=== PATIENT | female | born 2000 | race Caucasian/White ===

== ENCOUNTER 2020-10-31 13:09 | Emergency (ER) | payer OTHER ==
[~2020-10-31] VITALS: Ht 162.6 cm; Wt 90.9 kg
[~2020-10-31 13:09] MED LIST: NOCURR
[2020-10-31] MEDS ORDERED: LIDOCAINE 1% 10 ML VIAL SQ ONE (17:15)
[2020-10-31] MEDS ORDERED: POVIDONE-IODINE 10% 15 ML SOLUTION UD TP ONE (17:15)
[2020-10-31] MEDS ORDERED: HYDROCODONE/ACETAMINOPHEN 5-325 MG TABLET PO ONE (17:15)
[2020-10-31] MEDS ORDERED: PERTUSS(ACELL),DIPH,TET VAC/PF 0.5 ML SYRINGE IM. ONE (18:00)
[2020-10-31] MEDS ORDERED: AMOX TR/POT CLAV 875 MG/125 MG TABLET PO ONE (18:00)
[2020-10-31] MEDS ORDERED: BACITRACIN 0.9 GM PACKET OINTMENT TP ONE (18:15)
[2020-10-31 18:22] VITALS: BP 142/79
== END 2020-10-31 18:44 | disposition home or self-care (01) ==
LOC: EMS 13:09
DX: S41.111A Laceration without foreign body of right upper arm, initial encounter (principal); S41.151A Open bite of right upper arm, initial encounter; W54.0XXA Bitten by dog, initial encounter; Y93.89 Activity, other specified; Y92.89 Other specified places as the place of occurrence of the external cause; Y99.8 Other external cause status
CPT/HCPCS: 12002; 90471; 90715; 99283; J3490; 12011

== ENCOUNTER 2022-12-29 04:53 | Emergency (ER) | payer OTHER ==
[~2022-12-29] VITALS: Ht 170.2 cm; Wt 95.0 kg
[2022-12-29 05:49] LABS: BASOPHILS % (AUTO) 0.5 % (0.0-2.0); EOSINOPHILS % (AUTO) 2.2 % (1.0-6.0); HEMATOCRIT 36.8 % (36-46); HEMOGLOBIN 12.3 g/dL (12.0-16.0); LYMPHOCYTES # (AUTO) 1.4 K/uL (1.0-4.8); LYMPHOCYTES % (AUTO) 13.3 % (22.0-44.0); MEAN CORPUSCULAR HEMOGLOBIN 28.5 pg (26.0-34.0); MEAN CORPUSCULAR HGB CONC 33.6 G/dL (31.0-37.0); MEAN CORPUSCULAR VOLUME 85 fL (80-100); MONOCYTES # (AUTO) 0.5 K/uL (0.1-1.0); MONOCYTES % (AUTO) 4.3 % (2.0-9.0); NEUTROPHILS # (AUTO) 8.5 K/uL (1.8-7.7); NEUTROPHILS % (AUTO) 79.7 % (40.0-70.0); PLATELET COUNT (AUTO) 277 K/uL (150-450); RED BLOOD CELL COUNT(AUTO) 4.33 MIL/uL (4.00-5.20); RED CELL DISTRIBUTION WIDTH 13.6 % (11.5-14.5); WHITE BLOOD COUNT (AUTO) 10.7 K/uL (4.5-11.0)
[2022-12-29 05:56] LABS: ANION GAP 6 mmol/L (8-16); CALCIUM, TOTAL 8.8 mg/dL (8.8-10.5); CARBON DIOXIDE 30 mmol/L (22-29); CHLORIDE 105 mmol/L (98-107); CREATININE 0.86 mg/dL (0.60-1.30); GLOMERULAR FILTR. RATE CALC > 60 mL/min (>60); GLUCOSE,RANDOM 118 mg/dL (70-110); POTASSIUM 4.4 mmol/L (3.5-5.1); SODIUM SERUM 141 mmol/L (136-145); UREA NITROGEN, BLOOD 20 mg/dL (7-18)
[2022-12-29 06:01] VITALS: BP 118/62; PULSE 64; RESP 18; TEMP 98.5
[2022-12-29 06:02] LABS: ALANINE AMINOTRANSFERASE 32 U/L (12-78); ALBUMIN 3.5 g/dL (3.4-5.0); ALKALINE PHOSPHATASE 91 U/L (46-116); ASPARTATE AMINOTRANSFERASE 42 U/L (15-37); BILIRUBIN,TOTAL 0.2 mg/dL (0.1-1.0); LIPASE 25 U/L (16-77); TOTAL PROTEIN, SERUM 7.3 g/dL (6.4-8.2)
[2022-12-29 06:28] LABS: TROPONIN I-HIGH SENSITIVITY 9 ng/L (<51)
[2022-12-29 06:29] LABS: HCG,QUANTITATIVE < 1 mIU/mL (0-6)
[2022-12-29] MEDS ORDERED: FAMO20 PO (06:34)
== END 2022-12-29 06:38 | disposition home or self-care (01) ==
LOC: EMS 04:54
DX: R10.13 Epigastric pain (principal); R11.2 Nausea with vomiting, unspecified
CPT/HCPCS: 71045; 80053; 83690; 84484; 84702; 85025; 93005; 99285; 36415-L1; 36415-TC